=== PATIENT | male | born 1985 | race Caucasian/White ===

== ENCOUNTER 2020-02-04 21:17 | Emergency (ER) | payer MEDICAID, SELFPAY ==
[~2020-02-04] VITALS: Ht 185.4 cm; Wt 198.7 kg
--- NOTE | 2020-02-04 21:35 | NUR ---
assumed care of pt. pt here for swelling to L side of neck under jaw that gets worse when he eats. pt has no resp. distress. no difficulty breathing speaking or swallowing. calm and cooperative Rylee ULRICH at bedside for eval
[2020-02-04 22:29] VITALS: BP 149/70
== END 2020-02-04 22:33 | disposition home or self-care (01) ==
LOC: ED 21:47
DX: K11.21 Acute sialoadenitis (principal); K11.5 Sialolithiasis; H92.02 Otalgia, left ear; F17.210 Nicotine dependence, cigarettes, uncomplicated
CPT/HCPCS: 99283

== ENCOUNTER 2020-04-04 11:06 | Emergency (ER) | payer MEDICAID ==
[~2020-04-04] VITALS: Ht 185.4 cm; Wt 201.2 kg
[2020-04-04 11:08] VITALS: BP 163/96
--- NOTE | 2020-04-04 11:14 | NUR ---
DIGITAL COMPOSER: PA IN TRIAGE TESTING FOR COVID.
--- NOTE | 2020-04-04 11:28 | NUR ---
PT DC FROM TRIAGE.
== END 2020-04-04 11:30 | disposition home or self-care (01) ==
LOC: ED 11:27
DX: J06.9 Acute upper respiratory infection, unspecified (principal); Z20.828 Contact with and (suspected) exposure to other viral communicable diseases; R51.9 Headache, unspecified
CPT/HCPCS: 87635; 99283